=== PATIENT | female | born 1995 | race Asian ===

== ENCOUNTER 2020-06-15 12:52 | Outpatient (CLI) | payer BC, MEDICAID, SELFPAY ==
--- NOTE | ~2020-06-15 | US_ITS ---
EXAMINATION: US OB /maternal detail EXAM DATE: 06/15/2020 14:59 INDICATION: anatomy. 2nd trimester. Patient reportedly unsure of her dates. TECHNIQUE: Pelvic obstetrical transabdominal sonogram was performed by a technologist. There are mu ltiple grayscale and Doppler images available for interpretation. There are no earlier studies of th is gestation for comparison. FINDINGS: There is a single fetus identified in breech presentation with a heart rate of 154 beats pe r minute. The placenta is located in the posterior position. There is no sonographic evidence of ret roplacental hemorrhage identified. There is subjectively expected amount of amniotic fluid. BIOMETRIC DATA: Biparietal diameter (BPD): 5.0cm ----------------> 21 weeks 0 days. Head circumference (HC): 17.9 cm ----------------> 20 weeks 3 days. Abdominal circumference (AC): 14.6 cm ----------> 19 weeks 6 days. Femur length (FL): 3.3 cm --------------------------> 20 weeks 1 day. These measurements are concordant. HC/AC ratio is 1.23 (The 5th -- 95th percentile range is 1.07-1.25. Estimated weight is 334 g +/- 50 g. This is the less than 3rd percentile when the currently re ported clinical gestation age 22 weeks 2 days, clinical estimated date of delivery (XIAO-OPE) 1 is used. estimated gestational age based on measurements from this exam is 20 weeks 3 days, w ith an estimated date of delivery (XIAO-AUA) 10/30. ANATOMIC SURVEY: The following anatomy is identified and is sonographically normal in appearance: Cerebral ventricles Cerebellum Cisterna magna Nuchal fold CTL-spine Four-chamber heart Diaphragm Stomach Kidneys Bladder Three-vessel cord Cord insertion IMPRESSION: 1. Single fetus in vertex presentation with heart rate 154 beats per minute. 2. Estimated weight of 333 grams, less than 3rd percentile using the currently reported clinic al gestation age of 22 weeks 2 days. Please note patient reportedly told technologist she was unsure of her dates, and age based on this ultrasound is 20 weeks 3 days. 3. Normal anatomic survey. Reviewed, dictated and finalized at location A. [facility] IMPRESSION: 1. Single fetus in vertex presentation with heart rate 154 beats per minute. 2. Estimated weight of 333 grams, less than 3rd percentile using the cur rently reported clinical gestation age of 22 weeks 2 days. Please note patient reportedly told technologist she was unsure of her dates, and age based on this ultrasound is 20 weeks 3 days. 3. Normal anatomic survey.
== END 2020-06-15 12:53 | disposition home or self-care (01) ==
PROVIDERS: Visit Provider Obstetrics & Gynecology
DX: Z34.92 Encounter for supervision of normal pregnancy, unspecified, second trimester (principal); Z3A.22 22 weeks gestation of pregnancy
CPT/HCPCS: 76805

== ENCOUNTER 2020-10-24 00:58 | Inpatient (IN) | payer OTHER, BC, MEDICAID, SELFPAY ==
[2020-10-24] VITALS (12 sets, daily range): BP systolic 77–118; BP diastolic 44–77; PULSE 68–258; RESP 16–18; TEMP 36.4–37.7; O2SAT 97–98; BMI 25.8
[2020-10-24 01:35] LABS: Basophils Absolute Auto 0.1 K/mm3 (0.0-0.1); Basophils Percent Auto 0.6 % (0.2-1.2); Eosinophils Absolute Auto 0.1 K/mm3 (0-0.3); Eosinophils Percent Auto 1.4 % (0-4.4); Hematocrit 38.4 % (37.0-47.0); Hemoglobin 12.9 g/dL (12.0-15.0); Immature Granulocyte Absolute 0.15 K/mm3 (0.00-0.031); Immature Granulocyte Percent A 1.7 % (0-0.5); Lymphocytes Absolute Auto 2.45 K/mm3 (0.9-3.2); Lymphocytes Percent Auto 28.4 % (18.3-44.2); Mean Corpuscular HGB Conc 33.6 g/dl (32-36); Mean Corpuscular Hemoglobin 29.3 pg (26-34); Mean Corpuscular Volume 87.3 fl (80-100); Mean Platelet Volume 11.5 fl (7.4-10.4); Monocytes Absolute Auto 0.8 K/mm3 (0.1-0.6); Monocytes Percent Auto 9.1 % (2.6-8.5); Neutrophils Absolute Auto 5.1 K/mm3 (1.3-6.7); Neutrophils Percent Auto 58.8 % (45.5-73.1); Nucleated Red Blood Cells Perc 0.2 % (0.0-0.2); Platelet Count Result 231 k/mm3 (150-375); Red Cell Distribution Width 13.3 % (11.5-14.5); White Blood Count 8.6 K/mm3 (4.5-10.0)
[2020-10-24] MEDS: miSOPROStol 200 MCG TABLET 800 MCG (01:53)
--- NOTE | 2020-10-24 02:01 | WPDOBADMIT ---
Obstetrics - Admit Note Admission Note: 25 y/o arrived in active labor at 10cm. record reviewed. No pertinent additions to the history and/or any subsequent changes in the physical findings that are not consistent with the expected course of the were found. Additions to the history and/or subsequent changes in the physical findings follow. None.
--- NOTE | 2020-10-24 02:03 | PM.OBPRVD ---
OB - Delivery Note Procedure Delivery date: 10/24/20 Intrapartal events: Precipitous Labor < 3 hours Induction method: none Delivery augmentation: rupture of membranes Delivery monitor: external FHT and external uterine Route of delivery: Episiotomy description: None Laceration Description: None Quantitative Blood Loss (ml): 454 Anesthesia type: None [place] Baby Date of : 10/24/20 Time of : 01:46 Weeks of gestation at delivery: 40 Infant gender: Female Weight (pounds): 7 Weight (ounces): 9 presentation: vertex position: Left Occiput Anterior Placenta delivery description: Spontaneous Narrative: Mother and baby in stable condition. Cord segment handed off to staff for collection
[2020-10-24] MEDS: OXYTOCIN 30 UNITS/NS 500 ML 30 UNITS/500 ML BAG 125 UNITS IV CONT (02:28)
--- NOTE | 2020-10-24 02:57 | LDADM ---
This patient, Jason Burt, was admitted to Labor/Delivery/Recovery 107 on 10/24/20 at 00:58. Plans for labor, pain management and were discussed with patient. Patient/family oriented to hospital policies and general routines including ID bracelet, bed and alarms, visiting hours, pain management, procedures, bathroom and other care routines, personal items, smoking policy, room service/diet and guest tray routines, infant security routines, and visiting hours. Patient/Family are encouraged to report perceived risks to care and to ask questions if they do not understand what they are told or what they should do. See OBIX for further documentation.
[2020-10-24 06:28] LABS: Rapid Plasma Reagin Non-Reactive (NonReactive)
[2020-10-24] MEDS: MULTIVIT/MIN/PREN/FOL AC/IRON TABLET 1 TAB PO (09:47)
[2020-10-24] MEDS: IBUPROFEN 600 MG TABLET PO (09:47)
--- NOTE | 2020-10-24 10:00 | PC.NURSE ---
Mother called out for assist with feeding. Consulted with patient, mother reports has fed well since . Mother has slight nipple discomfort during first part of the feeding that quickly resolves. Reviewed nipple care of lanolin, warm compresses. Mother attempts infant to breast in cradle positioning, allowing infant to make several attempts of on and off to latch. Reviewed feeding cues, frequencies, duration of feedings, feeding elimination flow sheet, and signs of adequate intake. Demonstrated stimulation techniques to wake infant for feeding. Assisted with infant to breast. Reviewed positioning/alignment in football, holding breast in C hold and guided asymmetrical latch on. was able to latch within a few attempts. Infant nursed eagerly, with steady draws and frequent swallowing noted. Reviewed signs of a correct latch, effective nursing and suck swallow ratio. Infant was able to maintain latch. Mother reported tenderness at times, infant had slipped to shallow latch. Demonstrated how to adjust latch more deeply while feeding. Mother quickly reports she can feel is latched more deeply and has minimal tenderness. Advised to maintain hold to assist with maintaining latch. Suggested to stimulate while feeding to keep infant awake and nursing effectively for increased stimulation and increased intake. Instructed mother to call out for RN assistance if she is unable to latch infant for feeding or she has discomfort with nursing.
--- NOTE | 2020-10-24 10:30 | PC.NURSE ---
Mother had many questions concerning breastpump and pumping scheduled. Reviewed pumping and building supply
[2020-10-24] MEDS: ACETAMINOPHEN 325 MG TABLET 650 MG PO (12:25)
[2020-10-25 03:42] LABS: Hematocrit 30.4 % (37.0-47.0)
--- NOTE | 2020-10-25 09:08 | PM.OBPNVD ---
OB - PN: Subj Subjective Date/time seen: 10/25/20 09:08 Patient comments: no complaints, pain well controlled, incisional pain, tolerating diet and flatus present OB - PN: Obj Data Labs CBC & Chem 7: 10/25/20 03:29 Labs: Laboratory Results - last 24 hr 10/25/20 03:29 Hgb 10.0 L Hct 30.4 L OB - PN A/P Plan day: 1 Plan: routine care Comments: No problems, routine care Time Spent With Patient Time: Total time spent is greater than 50% in coordination of care (as documented) at patient's floor/unit and/or counseling patient: Exam Const: General: comfortable, no acute distress and alert Resp: Effort & Inspection: normal respiratory effort Auscultation: no crackles, no rales and no rhonchi Cardio: Rate: regular rate Heart sounds: no click, no murmurs and no rubs GI: Inspection: non-distended GI Palp: No Tenderness to palpation present (GI) Auscultation: normal bowel sounds Other: Incision - CDI Extrem: General: normal to inspection, no pedal edema and no calf tenderness
[2020-10-25] MEDS: MULTIVIT/MIN/PREN/FOL AC/IRON TABLET 1 TAB PO (09:44)
[2020-10-25] MEDS: DOCUSATE SODIUM 100 MG CAPSULE PO (09:44)
[2020-10-25] MEDS: IBUPROFEN 600 MG TABLET PO (09:44)
--- NOTE | 2020-10-25 10:05 | PC.NURSE ---
RN requested assist with latch due to pt. reporting pain. Mother has latched shallow in cradle. Reviewed positioning/alignment in cross cradle, holding breast in U hold and guided asymmetrical latch on. Discussed the importance of helping infant latch deeply from the first suckle. was able to latch correctly. Infant nursed eagerly, with steady draws and frequent swallowing noted. Reviewed signs of a correct latch, effective nursing and suck swallow ratio. Mother wanted to release U hold, slipped to shallow latch. Mother gain reported pinching. Advised to hold breast during entire feeding to assist with deep latch for her comfort and assist with increased stimulation and infant intake. Infant was able to maintain latch without discomfort to mother. Nipple care reviewed. Instructed mother to call out for RN assistance if she is unable to latch infant for feeding or she has discomfort with nursing. Instructed feeding should be initiated three hours from start of last feeding or if feeding cues are noted before. Mother voiced understanding of information shared.
[2020-10-25 10:07] VITALS: BP 101/58; PULSE 76; RESP 18; TEMP 36.3; O2SAT 98
[2020-10-25] MEDS: MEASLES,MUMPS,RUBELLA VACCINE 0.5 ML VIAL SUB-Q (13:10)
[2020-10-25 20:15] VITALS: BP 105/69; PULSE 99; RESP 16; TEMP 36.4; O2SAT 99
[2020-10-26 07:20] VITALS: BP 118/67; PULSE 88; RESP 16; TEMP 36.7; O2SAT 99
--- NOTE | 2020-10-26 07:30 | PC.NURSE ---
PT introductions made and plan of care discussed per post , pain management, breast feeding, daily care activities and pending discharge to home. PT verbalized understanding of such care.
--- NOTE | 2020-10-26 07:44 | PM.OBPNVD ---
OB - PN: Subj Subjective Date/time seen: 10/26/20 07:44 Patient comments: no complaints baby status: doing well OB - PN: Obj Data Labs CBC & Chem 7: 10/25/20 03:29 OB - PN A/P Plan day: 2 Plan: routine care and discharge home (F/U in 4 weeks) Time Spent With Patient Time: Total time spent is greater than 50% in coordination of care (as documented) at patient's floor/unit and/or counseling patient: Time with patient: less than 15 minutes Review of Systems Review of Systems: All systems reviewed & are unremarkable except as noted in HPI and below Exam Narrative: Exam Narrative: Fundus firm and vaginal flow controlled. No lower ext redness, warmth, or edema. Negative homans. Const: General: comfortable Chest: Breast/axilla inspection: normal inspection of the breasts Resp: Effort & Inspection: normal respiratory effort Cardio: Rate: regular rate GI: GI Palp: Yes Soft to palpation Psych: Appearance: grossly normal Affect: normal affect Attitude: cooperative Thought content: Yes Normal thought content present Judgement: Good judgement present (Psych)
--- NOTE | 2020-10-26 07:47 | P.DS_ITS ---
DS: Admitting Diagnosis Admitting Diagnosis Admitting Diagnosis: Labor DS: Discharge Diagnosis Discharge Diagnosis (1) Vaginal delivery: Code(s): O80 - Encounter for full-term uncomplicated delivery Status: Acute OB - DS: Summary OB Procedures : None OB Procedures Intrapartum: Spontaneous Vag Delivery OB Procedures: : None Time Spent with Patient Time attestation: Total time spent providing and/or coordinating discharge services: Discharge Plan Discharge Attending physician on discharge: Flory Woods Consulting providers: Hakan Kothari Discharging Clinician: Flory Woods Patient Disposition: Home, Self-Care Activity: pelvic rest Diet: as tolerated Discharge Instructions: Education: Mom and Baby Guide Given to: Mother Follow-Up: Call your delivering provider's office for an appointment to be seen in: 4 Weeks [facility]. Appointment Date/Time: October 27, 2020 at 9:30 am What to expect at your follow-up visit: Blood Pressure Check Call [phone] if you are unable to keep your appointment time. BREAST CARE: * Wear a snug supportive bra. * For engorgement discomfort: Breast Feeding: * Apply warm moist washcloths * Express milk as needed to relieve engorgement * Wear loose clothing Bottle Feeding: * May apply ice packs * For sore nipples: * Identify correct latch-on * Apply warm moist washcloths before and after nursing * Air dry nipples after nursing * May apply Lansinoh cream to nipples PERINEAL CARE: * Until bleeding stops, use your karrie bottle after urinating * Change your pad frequently throughout the day * You may take sitz baths several times a day (fill your bathtub with warm water and soak for 20 minutes.) Do NOT bathe in the water * No tub baths until seen by your physician - You may shower ACTIVITY: * Rest as much as possible. * Do not exercise or lift anything heavier than your baby (such as laundry or other children.) * Avoid stairs or driving as much as possible. * Do not put anything into the vagina. No douching, tampons, or sexual activity until seen by physician. NOTIFY PHYSICIAN IF YOU HAVE ANY QUESTIONS OR IF ANY OF THE FOLLOWING SYMPTOMS OCCUR: * If your perineum becomes red, swollen, or more painful than what you have experienced in the hospital. * If your vaginal bleeding becomes foul smelling. * If your vaginal bleeding becomes more heavy than a period or if your bleeding changes from pink to bright red. However, you may pass an occasional walnut- sized clot once or twice for the first week . * If you experience a sharp, shooting pain in you calves. * If you discover a hard, reddened area on your breast or if you experience flu- like symptoms. *If you have a fever of 100.4 or greater DIET: * Eat regular, well-balanced meals. * Drink plenty of fluids daily. If , drink to thirst. Patient Instructions: Antibiotic Form Stand Alone Forms: General Discharge Information Follow-up/Referrals: Flory Woods CNM [Certified Nurse Senior Military Analyst] - Date of admission: 10/24/20 00:58 Primary Care Provider: PHYSICIAN,SUPERVISOR [employer] Admitting Provider: Osito Wallace Attending physician on admission: Osito Wallace Condition: Stable
--- NOTE | 2020-10-26 08:00 | PC.NURSE ---
Patient viewed the discharge video Mother & Baby Care, The First Two Weeks . Patient was given the opportunity and encouraged to ask questions. Patient verbalized understanding of information shared and has been given the mother/baby guide for home reference.
[2020-10-26 09:30] VITALS: PULSE 88; RESP 16; O2SAT 99
--- NOTE | 2020-10-26 09:35 | PC.NURSE ---
Observed mother verbalizes she is able to independently latch with appropriate positioning/alignment. She reports slight nipple discomfort, is feeding as required and waking to feed if needed. Mother continues to work with deep latch and adjusting latch if infant slips to shallow latch. Mother is currently supplementing at times, reporting is not satisfied after . has had several effective feedings in the past 24 hours, and is currently meeting outcomes for weight, output, jaundice and feeding frequencies. Mother states she feels confident to continue current feeding plan at home. Reviewed transition to breast milk, signs of adequate intake, and engorgement/relief. Instructed to call ICP if intake/output less than required. Reviewed regular medications mother is taking. Information provided per Shelli. Reviewed community resources on the [facility] website and in the Mom/Baby guide. Information on outpatient services provided. Mother has no further questions at this time.
[2020-10-26] MEDS: MULTIVIT/MIN/PREN/FOL AC/IRON TABLET 1 TAB PO (09:40)
[2020-10-26] MEDS: IBUPROFEN 600 MG TABLET PO (09:40)
[2020-10-26] MEDS: DOCUSATE SODIUM 100 MG CAPSULE PO (09:40)
[2020-10-26] MEDS: ACETAMINOPHEN 325 MG TABLET 650 MG PO (09:43)
--- NOTE | 2020-10-26 13:00 | PC.NURSE ---
Pt and spouse received discharge instructions per protocol via one to one discussion per mom baby care guide book. only barrier note was language but both spouse and pt verbalized understanding of such instructions. follow up appts confirmed
--- NOTE | 2020-10-26 13:33 | PC.NURSE ---
PT discharged to home ambulatory accompanied by spouse and and taken to waiting car. follow up appts confirmed
[2020-10-27 10:13] VITALS: BP 110/66; PULSE 93; RESP 16; TEMP 36.8; O2SAT 98
== END 2020-10-26 13:33 | disposition home or self-care (01) | DRG 807 ==
LOC: ANHLDR 02:46 → ANHOB2 04:11
PROVIDERS: Advanced Practice Midwife; Admitting Provider Obstetrics & Gynecology; Visit Provider Obstetrics & Gynecology
DX: O62.3 Precipitate labor (principal); Z37.0 Single live birth; Z3A.40 40 weeks gestation of pregnancy; O99.824 Streptococcus B carrier state complicating childbirth; O99.02 Anemia complicating childbirth; D64.9 Anemia, unspecified
CPT/HCPCS: 36415; 85014; 85018; 85025; 86592; 86850; 86900; 86901; 90710; A9270; J2590

== ENCOUNTER 2022-03-23 13:25 | Emergency (ER) | payer BC, SELFPAY ==
[2022-03-23 13:39] VITALS: BP 84/58; PULSE 95; RESP 16; TEMP 36.9; O2SAT 99
--- NOTE | 2022-03-23 13:50 | ED.SKABFB ---
HPI - Skin/Abscess/Foreign Bdy General Chief complaint: Skin/Abscess/Foreign Body Stated complaint: poison génesis Time Seen by Provider: 03/23/22 13:50 History of Present Illness HPI narrative: Zully Burt is a 26 yo female with no PMH [facility] on both arms legs and back neck after alexa it on Friday. She has been scratching and they have used [id number] remedies without improvement Related Data Allergies Allergy/AdvReac Type Severity Reaction Status Date / Time No Known Allergies Allergy Verified 03/23/22 13:39 Review of Systems Review of Systems: CONSTITUTIONAL: Denies fever, chills, sweats. EYES: Denies visual changes, redness, discharge. ENT: Denies rhinorrhea, congestion, sore throat, otalgia. CARDIOVASCULAR: Denies chest pain, palpitations, edema. RESPIRATORY: Denies dyspnea, wheezing, cough GASTROINTESTINAL: Denies abdominal pain, nausea, vomiting, diarrhea. GENITOURINARY: Denies dysuria, hematuria, abnormal discharge SKIN: Rash from poison génesis that has been present for the last 4 days and unresponsive to [id number] meds NEUROLOGIC: Denies numbness, or focal weakness. PSYCHIATRIC: Denies anxiety or depression. [facility] Family History Family History Grandparent Hypertension Social History Social History Smoking status: Never smoker Second hand tobacco smoke exposure: No Substance use: never Spiritual care concerns: No Comments At time of signature, I agree with nursing past medical, surgical, social and family history. There is no relevant family history pertinent to the presenting complaint. Exam Narrative: GENERAL: This is a well-nourished, well-developed patient, in mild distress. HEAD: normocephalic, atraumatic. EYES: Sclera clear/white. Vision is grossly intact. EARS: External ears normal, . Hearing grossly intact. NOSE: External nose normal without nasal discharge, nares without redness, no rhinorrhea. THROAT: Mucous membranes moist, NECK: Neck supple, CARDIOVASCULAR: Regular rate and rhythm without murmurs, gallops, or rubs. RESPIRATORY: Clear to auscultation. Breath sounds equal bilaterally. No wheezes, rales, or rhonchi. GASTROINTESTINAL: Not done, SKIN: warm, intact with respiratory widespread with various degrees of healing and scabbing-no spreading on the face NEURO: awake, alert, and oriented to person, place and time. There were no obvious focal neurologic abnormalities. Steady gait EXTREMITIES: Normal range of motion. BACK: Nontender without deformity Course Course Emergency Course: Poison génesis over most of his body and now developing rash on face patient given 80 mg of prednisone here and will start on Medrol Dosepak in the morning as well as famotidine and Benadryl Level of Care: Express Care Visit Vital Signs Vital signs: Vital Signs Temperature 98.4 F 03/23/22 13:39 Pulse Rate 95 03/23/22 13:39 Respiratory Rate 16 03/23/22 13:39 Blood Pressure 84/58 L 03/23/22 13:39 Pulse Oximetry 99 03/23/22 13:39 Oxygen Delivery Room Air 03/23/22 13:39 Temperature 98.4 F 03/23/22 13:39 Pulse Rate 95 03/23/22 13:39 Respiratory Rate 16 03/23/22 13:39 Blood Pressure 84/58 L 03/23/22 13:39 Pulse Oximetry 99 03/23/22 13:39 Oxygen Delivery Room Air 03/23/22 13:39 MDM - Skin/Abscess/Foreign Bdy Differential Diagnosis Differential diagnosis: Likely urticaria, allergic reaction to drug, cellulitis, eczema, contact dermatitis and other Critical Care Time Critical Care Time Critical Care Time: No Discharge Plan Discharge Clinical Impression: Contact dermatitis Qualifiers: Contact dermatitis type: allergic Contact dermatitis trigger: non-food plants Qualified Code(s): L23.7 - Allergic contact dermatitis due to plants, except food Patient Disposition: Home, Self-Care Condition:
[2022-03-23] MEDS: predniSONE 20 MG TABLET 80 MG PO (14:02)
== END 2022-03-23 14:19 | disposition home or self-care (01) ==
PROVIDERS: Emergency Provider Nurse Practitioner
DX: L23.7 Allergic contact dermatitis due to plants, except food (principal)
CPT/HCPCS: 99213; G0463; J7512

== ENCOUNTER 2023-02-12 13:28 | Emergency (ER) | payer BC, SELFPAY ==
[2023-02-12 13:38] VITALS: BP 90/56; PULSE 68; RESP 16; TEMP 36.7; O2SAT 100
--- NOTE | 2023-02-12 14:04 | ED.SKABFB ---
HPI - Skin/Abscess/Foreign Bdy General Chief complaint: Skin/Abscess/Foreign Body Stated complaint: rash Time Seen by Provider: 02/12/23 14:05 Source: patient Mode of arrival: ambulatory Limitations: no limitations History of Present Illness HPI narrative: 27-year-old female presented for complaint of itching and rash to both arms after exposure to poison génesis 3 days ago. Has applied itch cream. Denies lip, tongue, or throat swelling, shortness of breath or wheezing. Denies changes to soap, detergent, lotion, or any other exposures. No one else in the house or any contacts with similar symptoms. Related Data Home Medications Medication Instructions Recorded Confirmed norelgestromin 150 mcg-e.estradiol patch 02/12/23 35 mcg/24 hr weekly transderm patch (Zafemy) Allergies Allergy/AdvReac Type Severity Reaction Status Date / Time No Known Allergies Allergy Verified 02/12/23 13:33 Review of Systems Review of Systems: CONSTITUTIONAL: Denies body aches, fever, chills, or sweats. EYES: Denies visual changes, redness, or discharge. ENT: Denies rhinorrhea, congestion CARDIOVASCULAR: Denies chest pain, palpitations, or edema. RESPIRATORY: Denies cough or dyspnea. GASTROINTESTINAL: Denies abdominal pain, nausea, vomiting, or diarrhea. SKIN: Reports rash and itching MUSCULOSKELETAL: Denies back pain, joint pain, or myalgia. NEUROLOGIC: Denies headache, numbness, tingling, or weakness. [facility] Family History Family History Grandparent Hypertension Social History Social History Smoking status: Never smoker Second hand tobacco smoke exposure: No Substance use: never Spiritual care concerns: No Comments At time of signature, I have reviewed and agree with nursing past medical, surgical, social and family history unless otherwise noted. Please see nursing chart for further information. There is no relevant family history pertinent to the presenting complaint Exam Narrative: GENERAL: Well-appearing HEAD: Normocephalic, atraumatic. EYES: conjunctivae clear, and EOMI. ENT: Mucous membranes moist. Oropharynx without edema, erythema or lesions. NECK: Supple. No lymphadenopathy CHEST: Clear to auscultation. HEART: Regular rate and rhythm. SKIN: Warm, dry. Erythematous vesicular rash noted to both arms, right distal forearm with crest, consistent with contact dermatitis. No induration, fluctuance or purulence. NEURO: Alert and oriented x3. Course Course Emergency Course: Patient is aware of diagnosis, understands and agrees to treatment plan. Anticipatory guidance given. Patient agrees to follow-up as directed and is aware of reasons to seek care at the emergency department. Portions of this record may have been created with voice recognition software Level of Care: Express Care Visit Vital Signs Vital signs: Vital Signs Temperature 98.0 F 02/12/23 13:38 Pulse Rate 68 02/12/23 13:38 Respiratory Rate 16 02/12/23 13:38 Blood Pressure 90/56 L 02/12/23 13:38 Pulse Oximetry 100 02/12/23 13:38 Oxygen Delivery Room Air 02/12/23 13:38 Temperature 98.0 F 02/12/23 13:38 Pulse Rate 68 02/12/23 13:38 Respiratory Rate 16 02/12/23 13:38 Blood Pressure 90/56 L 02/12/23 13:38 Pulse Oximetry 100 02/12/23 13:38 Oxygen Delivery Room Air 02/12/23 13:38 Reviewed MDM - Skin/Abscess/Foreign Bdy MDM Narrative Medical decision making narrative: Discussed physical exam findings. Advised supportive measures and signs/symptoms to go to the ER. Pt is appropriate for outpt treatment and f/u. Instructed patient to go to nearest ER immediately for any worsening symptoms including but not limited to: fever, spreading rash, pain, sore throat, headache, dizziness, chest pain, trouble breathing, or any symptoms concerning to the patient. Differential Diagnos
== END 2023-02-12 14:22 | disposition home or self-care (01) ==
PROVIDERS: Emergency Provider Nurse Practitioner Family; PCP Family Medicine
DX: L25.9 Unspecified contact dermatitis, unspecified cause (principal)
CPT/HCPCS: 99213; G0463

== ENCOUNTER 2024-04-08 11:02 | Emergency (ER) | payer BC, SELFPAY ==
[2024-04-08 11:16] VITALS: BP 106/59; PULSE 79; RESP 16; TEMP 36.8; O2SAT 100
--- NOTE | 2024-04-08 11:30 | ED.SKABFB ---
HPI - Skin/Abscess/Foreign Bdy General Chief complaint: Skin/Abscess/Foreign Body Stated complaint: rash on body Time Seen by Provider: 04/08/24 11:20 Source: patient Mode of arrival: ambulatory Limitations: no limitations History of Present Illness HPI narrative: Jason is a 28-year-old female patient presenting to the clinic today with complaints of an itchy raised rash to the back of her neck, chest, left cheek, and on her right lower leg. She reports that she thinks it may be poison génesis. Symptoms have been going on for 2 days. Related Data Home Medications Medication Instructions Recorded Confirmed norethindrone 1 mg-ethinyl 1 tablet PO DAILY 04/08/24 04/08/24 estradiol 20 mcg (21)-iron 75 mg (7) tablet (Jimmy Fe 08/16 (28)) Allergies Allergy/AdvReac Type Severity Reaction Status Date / Time No Known Allergies Allergy Verified 04/08/24 11:05 Review of Systems Review of Systems: Pertinent positives per HPI. Patient denies any fever, chills, headache, visual changes, dizziness, cough, runny nose, sore throat, shortness of breath, chest pain, palpitations, nausea, vomiting, diarrhea, constipation, abdominal pain, or any urinary issues. [facility] Family History Family History Grandparent Hypertension Social History Social History Smoking status: Never smoker Second hand tobacco smoke exposure: No Substance use: never Spiritual care concerns: No Comments At the time of my signature, I reviewed and agree with the nursing past medical, surgical, social, and family history. There is no relevant family history pertinent to the patient complaint. Exam Narrative: General: Well-developed, well nourished, in no apparent distress Head: Normocephalic, atraumatic. Cardio: Regular rate and rhythm, s1 and s2 normal, no murmur appreciated. Resp: Clear to auscultation bilaterally, no rhonchi, rales, wheezing or rubs. Integumentary: Toppers, warm, and dry, intact without lesion, red, raised, itchy dermatitis rash to the back of the neck, left cheek, anterior chest, and right leg Course Course Emergency Course: Portions of this record may have been created with voice recognition software. Level of Care: Express Care Visit Vital Signs Vital signs: Vital Signs Temperature 36.8 C 04/08/24 11:16 Pulse Rate 79 04/08/24 11:16 Respiratory Rate 16 04/08/24 11:16 Blood Pressure 106/59 L 04/08/24 11:16 Pulse Oximetry 100 04/08/24 11:16 Oxygen Delivery Autopap 04/08/24 11:16 Temperature 36.8 C 04/08/24 11:16 Pulse Rate 79 04/08/24 11:16 Respiratory Rate 16 04/08/24 11:16 Blood Pressure 106/59 L 04/08/24 11:16 Pulse Oximetry 100 04/08/24 11:16 Oxygen Delivery Autopap 04/08/24 11:16 Vital signs reviewed MDM - Skin/Abscess/Foreign Bdy MDM Narrative Medical decision making narrative: At the time of visit patient is resting comfortably on the exam table. Patient appears to be nontoxic. Medications: Decadron 10 mg IM given in the clinic today. Plan: I suspect patient has contact dermatitis. Prescription for prednisone 10 day taper dose and triamcinolone cream was sent to the pharmacy. Supportive measures were discussed with the patient and they voiced understanding discharge instructions and agrees to treatment plan. Return precautions reviewed Differential Diagnosis Differential diagnosis: Likely abscess of skin or subcutaneous tissue, viral exanthem, urticaria, allergic reaction to drug, cellulitis, eczema, insect bites, impetigo and contact dermatitis Discharge Plan Discharge Clinical Impression: Contact dermatitis Patient Disposition: Home, Self-Care Condition: Stable Instructions: Antibiotic Form, Contact Dermatitis (ED) Additional Instructions: Dexamethasone 10 mg IM given in the clinic today Apply triamcinolone cream
[2024-04-08] MEDS: dexAMETHasone SOD PHOS INJ 10 MG/ML 1 ML VIAL IM (11:36)
== END 2024-04-08 11:48 | disposition home or self-care (01) ==
PROVIDERS: Emergency Provider Nurse Practitioner Family
DX: L25.9 Unspecified contact dermatitis, unspecified cause (principal)
CPT/HCPCS: 96372; 99213; G0463; J1100